=== PATIENT | female | born 1990 | race Caucasian/White ===

== ENCOUNTER 2018-11-14 17:21 | Emergency (ER) | payer OTHER ==
[~2018-11-14] VITALS: Ht 172.7 cm; Wt 90.7 kg
[2018-11-14] MEDS ORDERED: IBUPROFEN 800800 M1 PO (18:54)
[2018-11-14] MEDS ORDERED: PERCOCET PO (18:54)
[2018-11-14 20:08] VITALS: BP 128/85
== END 2018-11-14 20:55 | disposition home or self-care (01) ==
LOC: M.ERS 17:21
DX: S82.841A Displaced bimalleolar fracture of right lower leg, initial encounter for closed fracture (principal); W18.40XA Slipping, tripping and stumbling without falling, unspecified, initial encounter; Y93.89 Activity, other specified; Y92.89 Other specified places as the place of occurrence of the external cause; Y99.8 Other external cause status